=== PATIENT | female | born 1980 ===

== ENCOUNTER → 2024-03-20 16:55 | Outpatient (REF) | payer OTHER, SELFPAY | LOC: RAD 16:55 | PROVIDERS: ATTENDING PHYSICIAN Internal Medicine Critical Care Medicine; FAMILY PHYSICIAN Family Medicine | DX: R06.09 Other forms of dyspnea (principal); M32.9 Systemic lupus erythematosus, unspecified; Z86.718 Personal history of other venous thrombosis and embolism | CPT/HCPCS: 71275; Q9967 ==